=== PATIENT | male | born 1960 | race Caucasian/White ===

== ENCOUNTER → 2020-07-29 | Day surgery (SDC) | payer OTHER ==
[~2020-07-29] MED LIST: CRESTOR5 MG PO; FLONASE ALLER15.8 ML; PERCOCET 5-3251 EACH PO; SINGULAIR10 MG PO; VITAMIN D350 MC3 PO; ZYRTEC10 M3 PO
[2020-07-29 07:53] LABS: HCT 48.3 % (42.0-52.0); HGB 16.3 g/dl (13.2-18.0); MCH 30.7 pg (25.0-31.0); MCHC 33.7 g/dL (32.0-36.0); MPV 10.5 fL (6.0-9.5); RBC 5.31 M/uL (4.70-6.00); RDW 12.3 % (11.5-14.0); WBC 7.7 K/uL (4.0-10.5)
[2020-07-29 08:15] LABS: ALBUMIN 3.7 g/dL (3.4-5.0); BILIRUBIN - TOTAL 0.9 mg/dL (0.2-1.0); BUN/CREAT RATIO (CALC) 21.8 RATIO; CREATININE 1.01 mg/dL (0.67-1.17); POTASSIUM 4.2 mmol/L (3.5-5.1); TOTAL PROTEIN 6.7 g/dL (6.4-8.2)
== END | disposition home or self-care (01) ==
LOC: FAS 07:02
PROVIDERS: Orthopaedic Surgery
DX: S83.241A Other tear of medial meniscus, current injury, right knee, initial encounter (principal); M17.11 Unilateral primary osteoarthritis, right knee; M21.169 Varus deformity, not elsewhere classified, unspecified knee; E78.00 Pure hypercholesterolemia, unspecified; Z98.890 Other specified postprocedural states; Z20.822 Contact with and (suspected) exposure to COVID-19
CPT/HCPCS: 36415; 71045; 80053; 93005; J1100; J1885; J2250; J2405; J2704; J3010; J7120; U0002

== ENCOUNTER → 2022-01-31 | Day surgery (SDC) | payer OTHER ==
[~2022-01-31] VITALS: Ht 177.8 cm; Wt 101.6 kg
[~2022-01-31] MED LIST changes: +CLARITIN10 M2 PO; +FLEXERIL5 MG PO; +MEDROL 4MG DOSEP4 MG PO
[2022-01-31 08:29] LABS: HGB 19.5 g/dl (13.2-18.0); MCH 30.6 pg (25.0-31.0); MCHC 33.6 g/dL (32.0-36.0); MCV 91.1 fL (78.0-100.0); MPV 10.1 fL (6.0-9.5); RBC 6.37 M/uL (4.70-6.00); RDW 12.6 % (11.5-14.0); WBC 10.9 K/uL (4.0-10.5)
[2022-01-31 08:56] LABS: ALBUMIN 4.3 g/dL (3.4-5.0); BILIRUBIN - TOTAL 1.8 mg/dL (0.2-1.0); BUN/CREAT RATIO (CALC) 18.4 RATIO; CREATININE 1.14 mg/dL (0.67-1.17); GLOBULIN (CALCULATION) 3.8 g/dL; POTASSIUM 4.5 mmol/L (3.5-5.1); TOTAL PROTEIN 8.1 g/dL (6.4-8.2)
== END | disposition home or self-care (01) ==
LOC: FAS 08:02
PROVIDERS: Surgery
DX: Z12.11 Encounter for screening for malignant neoplasm of colon (principal); D12.5 Benign neoplasm of sigmoid colon; E78.5 Hyperlipidemia, unspecified; Z86.010 Personal history of colon polyps; Z87.891 Personal history of nicotine dependence
CPT/HCPCS: 36415; 80053; J2250; J2704; J7120